=== PATIENT | female | born 1955 ===

== ENCOUNTER 2017-12-06 05:52 | Day surgery (SDC) | payer OTHER ==
[~2017-12-06 05:52] MED LIST: ABILIFY10 MG PO; ASPIR 8181 MG PO; BREO ELLIPTA I1 EACH IH; FLONASE16 GM; INDUR PO; LAMICTAL200 M1 PO; LEXAPRO20 MG PO; LIPITOR20 MG PO; NORVASC10 MG PO; SINGULAIR10 MG PO; SYNTHROID100 MCG PO
== END 2017-12-06 10:50 | disposition home or self-care (01) ==
LOC: CIR.AMB 05:52
DX: M06.841 Other specified rheumatoid arthritis, right hand (principal)

== ENCOUNTER 2018-01-11 06:15 | Day surgery (SDC) | payer OTHER | END 2018-01-11 16:40 | disposition home or self-care (01) | LOC: CIR.AMB 06:15 | DX: K40.90 Unilateral inguinal hernia, without obstruction or gangrene, not specified as recurrent (principal) ==

== ENCOUNTER 2023-01-26 07:21 | Outpatient (CLI) | payer OTHER | END 2023-01-26 07:29 | disposition home or self-care (01) | LOC: RX STUDY 07:21 | PROVIDERS: ATTEND Internal Medicine Gastroenterology | DX: R13.12 Dysphagia, oropharyngeal phase (principal) ==

== ENCOUNTER 2023-02-02 07:11 | Outpatient (CLI) | payer OTHER | END 2023-02-02 07:25 | disposition home or self-care (01) | LOC: TOM 07:11 | PROVIDERS: ATTEND Internal Medicine Gastroenterology | DX: K56.51 Intestinal adhesions [bands], with partial obstruction (principal); R19.4 Change in bowel habit; K63.5 Polyp of colon ==